=== PATIENT | female | born 1995 | race Caucasian/White ===

== ENCOUNTER 2021-04-08 16:31 | Emergency (ER) | payer BC, SELFPAY ==
[2021-04-08 16:32] VITALS: BP 134/78; PULSE 87; RESP 16; TEMP 36.6; O2SAT 100; BMI 23.7
--- NOTE | 2021-04-08 16:50 | EX.ED.UPPERE ---
HPI History of Present Illness HPI Narrative: Patient presents with cat bite to her left wrist that occurred 2 days ago. Patient states she was bitten by her boyfriend's grandmother's cat. She states that the cat is not up-to-date on its immunizations. Patient states that the cat ran away and is unable to be found. Patient was seen in urgent care and was started on amoxicillin. Patient has been taking that with some improvement. Patient states her pain is cramping, burning, and throbbing. Patient states it is better when is elevated. Patient states it is worse whenever it hangs down by her side. Patient denies any fevers but admits to some subjective chills. Patient admits to some nausea, vomiting, diarrhea since starting the antibiotic. Patient states that she talk to the health department and the health department told her to come to the emergency department for rabies vaccine. Chief Complaint: Bite Informant: patient Occured/Mechanism Mechanism/Context: Yes other see comment below Comment: Cat bite Onset/Context/Timing Onset: Days (2) Context: Gradual Onset Timing: Continuous Quality of Pain: Burning, Throbbing and - (Cramping) Location: Left wrist Worsened by: Dependent position Relieved by: Elevation Associated Symptoms Associated Symptoms: Negative for Parasthesia, Weakness and Loss of Funtion [facility] Medical History (Updated 04/08/21 @ 16:[address] Armando Magdaleno DO) Asthma Home Medications albuterol mcg INHALATION PRN PRN 04/08/21 [History Last Taken Unknown] Allergy/AdvReac Type Severity Reaction Status Date / Time No Known Allergies Allergy Verified 04/08/21 16:34 Surgical History History of tonsillectomy and adenoidectomy Social History Smoking Status: Current some day smoker tobacco type: cigarettes ROS ROS ED Constitutional Constitutional ED: Reports chills; Denies fever(s) Eyes Eyes: Denies blurry vision or change in vision ENT ENT ED: Denies rhinorrhea or sore throat Cardiovascular Cardiovascular: Denies chest pain or palpitations Respiratory/Chest Respiratory/Chest: Denies cough or dyspnea Gastrointestinal Gastrointestinal: Reports diarrhea, nausea and vomiting Genitourinary Genitourinary ED: Denies dysuria or hematuria Musculoskeletal Musculoskeletal: Reports back pain and neck pain Integumentary Denies abscess or rash Neurologic Neurologic: Denies headache(s) or weakness Allergic/Immunologic Allergic/Immunologic ED: Denies mouth swelling or urticaria EXAM Physical Exam Const Vital Signs: 04/08/21 16:32 Temperature 97.9 F Temperature Source Temporal Pulse Rate 87 Respiratory Rate 16 Blood Pressure 134/78 H Blood Pressure Mean 96 Pulse Ox 100 Oxygen Delivery Method Room Air Positive well nourished and well developed General Appearance ED: well developed HEENT Reports moist mucous membranes Extremity Extremity Narrative: There are puncture wounds over the dorsal and volar aspects of the left wrist. There is some mild surrounding erythema and edema. There is no discharge or drainage. There is no tenderness over the anatomic snuffbox. Sensation was intact to light touch in the radial, median, and ulnar areas. Radial pulses are equal bilaterally. Capillary refill was less than 2 seconds in all digits. Strength is 5/5 in the radial, median, and ulnar areas. Neuro oriented x3, CN's II-XII intact bilaterally, moves all extremities, no focal motor deficits and no sensory deficits noted Sensorium / Orientation: alert Psych mental status grossly normal MDM MDM MDM Narrative Medical decision making narrative: Patient was given rabies immunoglobulin at the site of the bite. Patient was started on rabies vaccine. Patient was instructed to return in 3 days, 1 week, and 3 weeks for repeat vaccines. Patient was given a referral for primary care physician. Patient was instructed to continue her amoxicillin until gone. Patient understood and was agreeable with the plan. All questions were answered Discharge Plan Triage Chief Complaint: Bite ED Provider: Armando Magdaleno Dx/Rx/DC Orders Clinical Impression: Cat bite of left wrist with infection Instructions: ED Cat Bite Prescriptions: No Action albuterol 90 mcg/actuation Aerosol INHALATION PRN PRN (Reason: ASTHMA) RF: 0 Primary Care Provider: Care Physician,No Primary Referrals: Fidelia Napoles MD [STAFF PHYSICIAN] - 3-5 Days NOT,DEFINED [NON-STAFF] - Disposition Disposition: Home, Self Care Discharge Date/Time: 04/08/21 19:07
[2021-04-08] MEDS: Rabies Immune Globulin/PF 300 UNIT/ML, 5 ML VIAL 1410 UNIT IM (18:14)
[2021-04-08] MEDS: Rabies Vaccine,Human Diploid 2.5 UNITS Vial IM (18:30)
== END 2021-04-08 19:07 | disposition home or self-care (01) ==
LOC: ED 17:12
PROVIDERS: Emergency Provider Emergency Medicine
DX: S60.872A Other superficial bite of left wrist, initial encounter (principal); L08.9 Local infection of the skin and subcutaneous tissue, unspecified; W55.01XA Bitten by cat, initial encounter; Y93.9 Activity, unspecified; Y92.9 Unspecified place or not applicable; F17.210 Nicotine dependence, cigarettes, uncomplicated
CPT/HCPCS: 90375; 90675; 96372; 99282

== ENCOUNTER 2021-04-11 15:45 | Outpatient (CLI) | payer BC, SELFPAY ==
[2021-04-11 15:48] VITALS: BP 128/78; PULSE 67; RESP 16; TEMP 36.6; O2SAT 99; BMI 24.0
[2021-04-11] MEDS: Rabies Vaccine,Human Diploid 2.5 UNITS Vial IM (16:13)
== END 2021-04-11 16:30 | disposition home or self-care (01) ==
PROVIDERS: Visit Provider Emergency Medicine
DX: Z23 Encounter for immunization (principal)
CPT/HCPCS: 90675; 96372

== ENCOUNTER 2021-04-15 17:11 | Outpatient (CLI) | payer BC, SELFPAY ==
[2021-04-15 17:12] VITALS: PULSE 64; RESP 18; O2SAT 98; BMI 23.6
[2021-04-15] MEDS: Rabies Vaccine,Human Diploid 2.5 UNITS Vial IM (17:33)
--- NOTE | 2021-04-15 17:38 | CM.ED ---
SUE Note SUE Referral Source: Case Find SW Referral Reason: [facility] SW met with patient. SHe reports she is here for detox for fentanyl. Reports use of 1/2 gram to 1 gram a day. Patient said that yesterday was her last use of fentanyl. Patient is not linked with AOD provider. SUE explained RAMP program and explained no phone, visitors and personal items locked up. Patient said that she just wants to make sure my boyfriend is ok medically. SW will continue to follow. Zainab GRAJEDA
[2021-04-15 17:39] VITALS: BMI 23.6
== END 2021-04-15 18:02 | disposition home or self-care (01) ==
LOC: ED 18:03
DX: Z23 Encounter for immunization (principal)
CPT/HCPCS: 90675; 96372

== ENCOUNTER 2021-04-22 19:16 | Outpatient (CLI) | payer BC, SELFPAY ==
[2021-04-22 19:17] VITALS: BP 105/60; PULSE 61; RESP 18; O2SAT 100
--- NOTE | 2021-04-22 19:53 | ED.RN ---
CALLED PHARMACY ON UPDATE FOR RABIES VACCINE. PHARMACIST WORKING ON SENDING UP
[2021-04-22] MEDS: Rabies Vaccine,Human Diploid 2.5 UNITS Vial IM (19:57)
== END 2021-04-22 20:38 | disposition home or self-care (01) ==
LOC: ED 04-23 00:09
DX: Z23 Encounter for immunization (principal)
CPT/HCPCS: 90675; 96372